=== PATIENT | female | born 1950 | race Caucasian/White ===

== ENCOUNTER 2017-09-08 11:48 | Emergency (ER) | payer OTHER ==
[~2017-09-08] VITALS: Ht 160 cm; Wt 51.3 kg
[~2017-09-08 11:48] MED LIST: COZAAR50 MG; LEVOXYL50 MCG; PEPCID20 MG PO; TRAMADOL HCL-AP1 TAB PO
== END 2017-09-08 18:27 | disposition home or self-care (01) ==
LOC: ER 11:48
DX: N39.0 Urinary tract infection, site not specified (principal); B96.29 Other Escherichia coli [E. coli] as the cause of diseases classified elsewhere